=== PATIENT | female | born 2000 | race Caucasian/White ===

== ENCOUNTER 2023-04-02 18:58 | Emergency (ER) | payer OTHER, MEDICAID, SELFPAY ==
[2023-04-02 19:46] VITALS: BP 140/98; PULSE 94; RESP 15; TEMP 36.8; O2SAT 97; BMI 32.3
--- NOTE | 2023-04-02 20:43 | ED.RN ---
PT [facility] FROM [facility] IN [place] ON SATURDAY, AT BEDSIDE. PARENTS JUST ARRIVED WELL
--- NOTE | 2023-04-02 21:05 | EDS_ITS ---
HPI History of Present Illness Chief Complaint: General Illness Detail of Chief Complaint: Diarrhea and abdominal pain Informant: patient, parent and legal guardian Narrative Narrative: Patient presents to the emergency department and is here with her parents. Patient apparently lives in a senior care in [place] and she ran away from the senior care 2 days ago. Family had no idea where she was and they alerted the authorities who eventually found out that she was in [place] via Facebook. Patient has been without her psychiatric medications for several days. She is complaining of diarrhea for the last 5 days. Patient having multiple watery stools. She complaining of intermittent abdominal pain. She denies fevers. Patient denies injury although she did recently have ankle sprains that were evaluated. They have been waiting 2 hours to be seen because the emergency department has been quite busy. They do not want to pursue any lab work or imaging. Her mother who is the caregiver and legal guardian states that she has had multiple ultrasounds of her gallbladder and they have all been normal. They do not want to wait for blood work and imaging. [facility] Medical History (Updated 04/02/23 @ 21:[address] Darling Moran, ) ADHD Depression PTSD (post-traumatic stress disorder) Allergy/AdvReac Type Severity Reaction Status Date / Time amoxicillin [From Augmentin] AdvReac Hives Verified 04/02/23 19:50 clavulanic acid AdvReac Hives Verified 04/02/23 19:50 [From Augmentin] Social History Smoking Status: Never smoker ROS ROS ED Review of Systems ROS Unobtainable: other Constitutional Constitutional ED: Reports lethargy; Denies chills, fever(s), sweats or weight loss Eyes Eyes: Denies blurry vision, change in vision or diplopia ENT ENT ED: Denies rhinorrhea or sore throat Cardiovascular Cardiovascular: Denies chest pain, orthopnea or racing heartbeat Respiratory/Chest Respiratory/Chest: Denies cough, dyspnea, dyspnea on exertion, orthopnea or sputum Gastrointestinal Gastrointestinal: Reports abdominal pain and diarrhea; Denies nausea or vomiting Genitourinary Genitourinary ED: Denies dysuria, hematuria or urinary frequency Musculoskeletal Musculoskeletal: Denies arthralgias, back pain, myalgias or neck pain Integumentary Denies abscess, Abrasions or rash Neurologic Neurologic: Denies headache(s) or weakness Psychiatric Psychiatric: Denies anxiety, depression or suicidal thoughts Endocrine Endocrinology: Denies polydipsia, polyphagia or polyuria Hematologic/Lymphatic Hematologic/Lymphatic: Denies easy bleeding, easy bruising or lymphadenopathy Allergic/Immunologic Allergic/Immunologic ED: Denies mouth swelling, tongue swelling or urticaria EXAM Physical Exam Const Vital Signs: 04/02/23 19:46 04/02/23 20:44 Temperature 98.3 F Temperature Source Temporal Pulse Rate 94 Respiratory Rate 15 Respiratory Effort Normal Non-Labored Blood Pressure 140/98 H Blood Pressure Mean 112 Pulse Ox 97 Oxygen Delivery Method Room Air Positive well nourished and well developed General Appearance ED: well developed and NAD HEENT Reports TM's clear and moist mucous membranes normocephalic and atraumatic; Negative for trauma or tenderness Tympanic Membrane ED: Yes TM's clear Eyes PERRL and EOMs intact bilaterally General Eye ED: Negative for pale conjunctiva or scleral icterus Neck no lymphadenopathy, supple and no JVD General: Negative for tenderness Chest Wall inspection of chest normal and palpation of chest normal Chest: Negative for tenderness Resp normal respiratory effort and clear to auscultation bilaterally Effort and Inspection: Negative for respiratory distress or pain with movement Auscultation: Negative for rhonchi, wheezes or diminished lung sounds Cardio regular rate, regular rhythm, S1 normal heart sound, S2 normal heart sound and no murmurs Peripheral Pulses: pulses 2+ throughout GI normal to inspection, nondistended, normoactive bowel sounds, soft to palpation, non-distended and no masses GI Narrative: Mild tenderness palpation over right lower quadrant with some mild guarding. There is no rebound, rigidity, or pedal signs. No mass palpated Back/Spine no CVA tenderness and no thoracic nor lumbar tenderness Extremity normal to inspection General Extremety ED: Negative for edema General Extremity: Negative for edema Neuro oriented x3, CN's II-XII intact bilaterally, no sensory deficits noted and gait normal Sensorium / Orientation: awake, alert, oriented to person, oriented to place and oriented to time Motor Exam: strength 5/5 throughout and strength abnormal Psych mental status grossly normal Skin no rashes or lesions noted and no wounds MDM MDM MDM Narrative Medical decision making narrative: Patient presents with abdominal pain however on exam her exam seems relatively benign. Family does not want to wait for lab work and imaging as they know her well and she tends to embellish. They live close to a hospital and if they need to seek care there they can do that if her symptoms persist. They would just like to take her home. Discharge Plan Triage Chief Complaint: General Illness ED Provider: Darling Moran Dx/Rx/DC Orders Clinical Impression: Abdominal pain, Diarrhea Instructions: ED Abdominal Pain Unkn Cause Fem, ED Diarrhea, Unknown Cause Primary Care Provider: Care Physician,No Primary Referrals: Care Physician,No Primary [Primary Care Provider] - Activity Restrictions/Additional Instructions: Follow-up with primary care physician within next 1 or 2 days if no improvement. Disposition Disposition: Home, Self Care
== END 2023-04-02 21:30 | disposition home or self-care (01) ==
LOC: ED 21:28
PROVIDERS: Emergency Provider Emergency Medicine; Visit Provider Emergency Medicine
DX: R10.9 Unspecified abdominal pain (principal); R19.7 Diarrhea, unspecified
CPT/HCPCS: 99285